=== PATIENT | female | born 1990 | race Caucasian/White ===

== ENCOUNTER 2022-12-24 06:00 | Day surgery (SDC) | payer OTHER ==
[2022-12-24] MEDS ORDERED: CEFAZOLIN 2 GM-D5W BAG** 2 GM/50 ML ML IV SCH (06:30)
[2022-12-24] MEDS ORDERED: Lactated Ringers 1,000 ML IV SCH (06:30)
[2022-12-24] MEDS ORDERED: SUBLIMAZE 100 MCG/2 ML ONE (07:41)
[2022-12-24] MEDS ORDERED: Versed 2 MG/2 ML Injection ONE (07:41)
[2022-12-24] MEDS ORDERED: DIPRIVAN 200 MG/20 ML IV ONE (07:41)
[2022-12-24] MEDS ORDERED: TORAdol 30 mg Injection ONE (07:55)
[2022-12-24] MEDS ORDERED: Zofran 4 MG/2 ML VIAL ONE (07:56)
[2022-12-24 09:32] VITALS: O2SAT 98
[2022-12-24 09:53] VITALS: BP 130/82; PULSE 82
[2022-12-24 10:08] LABS: ALKALINE PHOSPHATASE 67 U/L (38-126); ANION GAP 13.4 MEQ/L (5-15); BLOOD UREA NITROGEN 13 mg/dL (7-17); CHLORIDE 104 mmol/L (98-107); Calcium 8.6 mg/dL (8.4-10.2); Carbon Dioxide 27 mmol/L (22-30); Creatinine 1 0.54 mg/dL (0.52-1.04); EST GLOMERULAR FILTRATION RATE > 60.0 ML/MIN; Glucose 144 mg/dL (74-106); Potassium 3.8 mmol/L (3.5-5.1); SGOT/AST 24 U/L (14-36); SGPT/ALT 19 U/L (0-35); SODIUM 140 mmol/L (137-145); Total Protein 6.8 g/dL (6.3-8.2)
[2022-12-25 11:08] LABS: FSH 3.2 mIU/mL (.)
[2022-12-25 11:09] LABS: Insulin 40.4 uIU/mL (2.6-24.9)
--- NOTE | 2022-12-25 11:51 | OP ---
SURGERY DATE/TIME: 12/24/2022 0740 PREOPERATIVE DIAGNOSIS: Menorrhagia with failed medical management. POSTOPERATIVE DIAGNOSIS: Menorrhagia with failed medical management. PROCEDURE: Hysteroscopy D&C with NovaSure ablation. SURGEON: Zachary Tucker D.O. CHANGE MANAGEMENT MANAGER: Lisa Echeverria, ophthalmology surgical technician. ANESTHESIA: General. ESTIMATED BLOOD LOSS: Minimal. COMPLICATIONS: None. INDICATIONS: The risks, benefits, indications and alternatives of the procedure were reviewed with the patient prior to procedure. The patient understood the risk of infection, bleeding, bowel injury, bladder injury, uterine perforation, pelvic infection and thromboembolic disorder associated with the surgery and desires to have this surgery as a possible means to alleviate her current medical condition. DESCRIPTION OF PROCEDURE AND FINDINGS: At this point the patient is taken to the operating room, given general sedation, placed in the dorsal lithotomy position, prepped and draped in the usual sterile fashion. A weighted speculum is then placed into the vagina and the anterior lip of the cervix grasped with a single tooth tenaculum. Endocervical dilators were advanced through the endocervical canal as a means to dilate the cervix. At this point a 5 mm hysteroscope was then placed in through endocervical region where visualization of the uterine cavity appeared to be within normal limits with no gross abnormalities. The hysteroscope was removed and the curette was then placed into the fundus of the uterus and curettage was performed in all quadrants of the uterus retrieving a mild to moderate amount of tissue. Again, hemostasis was noted. From this point the NovaSure instrument was inserted in the uterus with a length of 6.5 cm where it was engaged and a width of 4.2 cm. After engaging the instrument was turned on for an ablative time of 1 minute and 15 seconds. After complete ablation, the NovaSure was disengaged and removed from the uterine cavity without complication. From this point all instruments were removed from the patient's vaginal region. The patient was then taken out of the dorsal lithotomy position, was then taken to the recovery room in stable condition. All instruments and laps were accounted for x2.
[2022-12-25 13:21] LABS: LH 9.3 mIU/mL (.)
== END 2022-12-24 09:45 | disposition home or self-care (01) ==
LOC: SDC 06:00
PROVIDERS: ATTEND Obstetrics & Gynecology
DX: N92.0 Excessive and frequent menstruation with regular cycle (principal); E11.9 Type 2 diabetes mellitus without complications
CPT/HCPCS: 36415; 80053; 81025; 82947; 83001; 83002; 83525; J0690; J1885; J2250; J2405; J2704; J3010

== ENCOUNTER 2023-01-31 08:48 | Emergency (ER) | payer OTHER ==
--- NOTE | 2023-01-31 09:22 | ERPHSYRPT ---
- History of Present Illness Source: patient, other (Employee health) Exam Limitations: no limitations Patient Subjective Stated Complaint: Pt states "I was giving a shot and got a needlestick in my second digit on my right hand." Triage Nursing Assessment: Pt presnted alert and oriented X 3, skin wpd. Pt ambulates with an upright steady gait, able to speak in clear full sentences. 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 Source is known and is getting tested for HIV/Hepatitis. Timing/Duration: other (8:45) Severity: mild Associated Symptoms: denies symptoms Allergies/Adverse Reactions: latex Allergy (Unknown, Verified 12/24/22 06:15) Swelling Home Medications: Metformin HCl 500 mg [Glucophage 500 MG] 500 mg PO BID 12/23/22 [History] PARoxetine HCL [Paroxetine HCl] 10 mg PO DAILY 12/23/22 [History] Paroxetine HCl 20 mg [Paxil 20 MG] 40 mg PO DAILY 12/23/22 [History] Hx Tetanus, Diphtheria Vaccination/Date Given: Yes Hx Influenza Vaccination/Date Given: Yes Hx Pneumococcal Vaccination/Date Given: No Immunizations Up to Date: Yes Travel Risk - International Travel Have you traveled outside of the country in past 3 weeks: No - Coronavirus Screening Are you exhibiting any of the following symptoms?: No Close contact with a COVID-19 positive Pt in past 14-21 Days: No - Vaccine Status Have you recieved a Covid-19 vaccination: Yes [employer]: [employer] - Review of Systems Constitutional: No Symptoms Eyes: No Symptoms Ears, Nose, & Throat: No Symptoms Respiratory: No Symptoms Cardiac: No Symptoms Abdominal/Gastrointestinal: No Symptoms Genitourinary Symptoms: No Symptoms Skin: No Symptoms Neurological: No Symptoms Psychological: No Symptoms Endocrine: No Symptoms Hematologic/Lymphatic: No Symptoms Immunological/Allergic: No Symptoms - Past Medical History Pertinent Past Medical History: Yes Neurological History: No Pertinent History ENT History: No Pertinent History Cardiac History: No Pertinent History Respiratory History: No Pertinent History Endocrine Medical History: No Pertinent History Musculoskeletal History: No Pertinent History GI Medical History: No Pertinent History History: No Pertinent History Psycho-Social History: Anxiety, Depression Female Reproductive Disorders: No Pertinent History Other Medical History: easy bruising, - Past Surgical History Past Surgical History: Yes Neuro Surgical History: No Pertinent History Cardiac: No Pertinent History Respiratory: No Pertinent History Gastrointestinal: No Pertinent History Genitourinary: No Pertinent History Musculoskeletal: No Pertinent History Female Surgical History: Section, Tubal Ligation Other Surgical History: c sec x3 - Social History Smoking Status: Former smoker Exposure to second hand smoke: No Drug Use: none Patient Lives Alone: No - Female History Hx Last Menstrual Period: awhile Hx Now: No (ablasion) - Nursing Vital Signs Nursing Vital Signs: Initial Vital Signs Temperature 97.7 F 01/31/23 08:59 Pulse Rate 90 01/31/23 08:59 Respiratory Rate 20 01/31/23 08:59 Blood Pressure 117/69 01/31/23 08:59 O2 Sat by Pulse Oximetry 95 01/31/23 08:59 Pain Scale Pain Intensity 0 WNL - Physical Exam General Appearance: no apparent distress Eye Exam: PERRL/EOMI, eyes nml inspection Ears, Nose, Throat Exam: normal ENT inspection, TMs normal, pharynx normal, moist mucous membranes Neck Exam: normal inspection, non-tender, supple, full range of motion, No meningismus, No mass, No Brudzinski, No Kernig's, No carotid bruit Respiratory Exam: normal breath sounds, lungs clear, airway intact, No respiratory distress Cardiovascular Exam: regular rate/rhythm, normal heart sounds, normal peripheral pulses, capillary refill <2 sec, No murmur Gastrointestinal/Abdomen Exam: soft, normal bowel sounds, No tenderness Back Exam: normal inspection Extremity Exam: other (Small puncture wound R distal 2nd digit/Good hemostasi s/Good distal capillary return and sensation) Neurologic Exam: alert, oriented x 3, cooperative, automotive service professional II-XII nml as tested, normal mood/affect, nml cerebellar function, nml station & gait, sensation nml Skin Exam: normal color, warm, dry, No rash Lymphatic Exam: No adenopathy SpO2 Interpretation: normal SpO2: 95 O2 Delivery: Room Air - Course Nursing assessment & vital signs reviewed: Yes - Progress Progress Note: 01/31/23 09:22 Nursing note and vital signs reviewed No food or housing insecurities noted Pt counselled on HIV prophylaxis which is not recommended for superficial needle stick but willing to provide if requested. Since source is known and has been tested, pt elected not to undergo HIV prophylaxis. She is UTD on HepB/Tdap vaccines. 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 Source is HIV negative. Hep profile/Hiv sent to lab on Pt 01/31/23 10:17 01/31/23 10:49 Counseled pt/family regarding: diagnosis, need for follow-up - Departure Departure Disposition: Home Clinical Impression: Needle stick injury of finger of right hand Condition: Stable Critical Care Time: No Referrals: [facility] [Primary Care Provider] - Follow up/PCP as directed Instructions: Blood or Body Fluid Exposure, Post-Exposure Prophylaxis Additional Instructions: Follow up with Employee Health
[2023-01-31 10:15] VITALS: BP 106/74; PULSE 94
[2023-01-31 10:22] VITALS: O2SAT 95
[2023-02-01 08:11] LABS: HBsAg Screen Negative (Negative); HCV Ab Non Reactive (Non Reactive); Hep A Ab, IgM Negative (Negative); Hep B Core Ab, IgM Negative (Negative)
[2023-02-01 09:29] LABS: HIV Screen 4th Generation wRfx Non Reactive (Non Reactive)
== END 2023-01-31 11:04 | disposition home or self-care (01) ==
LOC: ER - EH 08:48
DX: S61.230A Puncture wound without foreign body of right index finger without damage to nail, initial encounter (principal); W46.1XXA Contact with contaminated hypodermic needle, initial encounter; Y92.239 Unspecified place in hospital as the place of occurrence of the external cause; Y99.0 Civilian activity done for income or pay; Z79.899 Other long term (current) drug therapy
CPT/HCPCS: 36415; 80074; 87389; 99282